=== PATIENT | female | born 1945 | race Caucasian/White ===

== ENCOUNTER → 2018-09-19 | Outpatient (CLI) | payer OTHER, MEDICAID ==
[~2018-09-19] MED LIST: ADULT LOW DOSE81 MG PO; ADVAIRDISKUS; AVELOX 400 MG400 MG PO; AZITHROMYCIN 2250 MG PO; B12 PO; CYCLOBENZAPRINE5 MG PO; CYMBALTA20 MG PO; D3 DOTS2000 UNIT PO; DESYREL100 MG PO; ESTRACE2 MG PO; FENTANYL 1100 MCG/HR; FENTANYL PATCH75 MCG TRANSDERM; FLEXERIL; FLEXERIL PO; FLUZONE 2045 MCG/011; HYDROCODON-ACE1 EAC2 PO; HYDROCODON-ACE1 EAC8 PO; LEVOTHYROXIN0.025 MG PO; LIPITOR10 MG PO; MEDROL2 MG PO; NEURONTIN 300300 M1 PO; NEURONTIN 300M300 M2 PO; POTASSIUM GLUCONATE PO; PREDNISONE 10 M10 MG PO; SPIRIVA; SYMBICORT160 MCG/4. INH; TRAZODONE HCL100 MG PO; TRICOR145 MG PO; VENTOLIN HFA 1818 GM INH; VENTOLIN17 GM; WELLBUTRIN SR150 MG; XANAX 0.25 MG0.25 MG PO
--- NOTE | 2018-09-19 15:06 | 2DMMODE ---
[place] [address] 2 D/M-MODE ECHOCARDIOGRAM Name: KENDY LUCIA Room: [facility]#: [id number] Admission: 09/19/18 Attend Phys: Anup Mirza, Discharge: Date of : 45 Date of Service: 09/19/18 1505 Report #: [id number] THIS REPORT FOR: //name// APPROVED REPORT Study performed: 09/19/2018 14:00:35 EXAM: Comprehensive 2D, Doppler, and color-flow Echocardiogram Patient Location: Out-Patient BSA: 1.81 HR: 108 bpm BP: 120/80 mmHg Other Information Study Quality: Fair Technically limited study due to lung disease. Indications COPD Dyspnea 2D Dimensions IVSd: 12.47 (7-11mm) LVOT Diam: 20.33 (18-24mm) LVDd: 41.05 mm PWd: 10.22 (7-11mm) Ascending Ao: 27.17 (22-36mm) LVDs: 22.63 (25-40mm) Aortic Root: 25.62 mm Volumes Left Atrial Volume (Systole) LA ESV Index: 14.00 mL/m2 Aortic Valve AoV Peak William.: 1.23 m/s AO Peak Gr.: 6.04 mmHg LVOT Max P.11 mmHg AO Mean Gr.: 3.04 mmHg LVOT Mean P.56 mmHg LVOT Max V: 1.24 m/s AO V2 VTI: 18.18 cm LVOT Mean V: 0.72 m/s GONZALO (VTI): 3.51 cm2 LVOT V1 VTI: 19.64 cm Mitral Valve E/A Ratio: 0.65 MV Decel. Time: 159.54 ms MV E Max William.: 0.51 m/s MV PHT: 46.27 [place] [address] 2 D/M-MODE ECHOCARDIOGRAM Name: KHARIKENDY Room: [facility]#: [id number] Admission: 09/19/18 Attend Phys: Anup Mirza, Discharge: Date of : 45 Date of Service: 09/19/18 1505 Report #: [id number] MVA (PHT): 4.76 cm2 TDI E/Lateral E': 4.64 E/Medial E': 5.10 Medial E' William.: 0.10 m/s Lateral E' William.: 0.11 m/s Pulmonary Valve PV Peak William.: 1.01 m/s PV Peak Gr.: 4.12 mmHg Left Ventricle The left ventricle is normal size. There is normal LV segmental wall motion. There is normal left ventricular wall thickness. Left ventricular systolic function is normal. The left ventricular ejection fraction is within the normal range. LVEF is 60-65%. Grade I - abnormal relaxation pattern. Right Ventricle The right ventricle is normal size. The right ventricular systolic function is normal. Atria The left atrium size is normal. The right atrium size is normal. Aortic Valve Aortic valve is mildly calcified. No aortic regurgitation is present. There is no aortic valvular stenosis. Mitral Valve The mitral valve is normal in structure. There is no mitral valve regurgitation noted. No evidence of mitral valve stenosis. Tricuspid Valve The tricuspid valve is normal in structure. There is no tricuspid valve regurgitation noted. Pulmonic Valve The pulmonary valve is normal in structure. Mild pulmonic regurgitation. Great Vessels The aortic root is normal in size. IVC is normal in size and collapses >50% [place] [address] 2 D/M-MODE ECHOCARDIOGRAM Name: KENDY LUCIA Room: [facility]#: [id number] Admission: 09/19/18 Attend Phys: Anup Mirza, Discharge: Date of : 45 Date of Service: 09/19/18 1505 Report #: [id number] inspiration. Pericardium There is no pericardial effusion. <Conclusion> The left ventricle is normal size. There is normal left ventricular wall thickness. Left ventricular systolic function is normal. The left ventricular ejection fraction is within the normal range. LVEF is 60-65%. Grade I - abnormal relaxation pattern. The right ventricle is normal size. The left atrium size is normal. Aortic valve is mildly calcified. No aortic regurgitation is present. There is no aortic valvular stenosis. The mitral valve is normal in structure. The tricuspid valve is normal in structure. IVC is normal in size and collapses >50% with inspiration. There is normal LV segmental wall motion. <ELECTRONICALLY SIGNED> By: Seth Newton MD, [facility] 09/19/18 1505 1505 1505 Seth Newton MD, FAC /INF
== END ==
LOC: M.RAD 09-03 13:30 → M.CRD 09-03 14:00 → M.RAD 09-11 13:30
DX: Z12.31 Encounter for screening mammogram for malignant neoplasm of breast (principal); J44.9 Chronic obstructive pulmonary disease, unspecified; E03.9 Hypothyroidism, unspecified; I10 Essential (primary) hypertension

== ENCOUNTER 2018-12-19 17:09 | Inpatient (IN) | payer OTHER ==
[~2018-12-19] VITALS: Ht 165.1 cm; Wt 75.7 kg
[2018-12-19 17:16] VITALS: BP 162/101
[2018-12-19 17:44] LABS: HEMATOCRIT 38.6 % (37.0-47.0); HEMOGLOBIN 12.9 gm/dL (12.0-15.0); MCH 30.1 pg (26.0-34.0); MCHC 33.5 g/dL (28.0-37.0); MCV 90.1 fL (80.0-100.0); NUCLEATED RBCS 0 /100WBC; PLATELET COUNT* 555 thou/uL (150-400); RBC 4.29 mil/uL (4.20-5.00); RDW-CV 14.1 % (10.5-14.5)
[2018-12-19 18:00] LABS: ALBUMIN 3.7 g/dL (3.4-5.0); ALKALINE PHOSPHATASE 58 U/L (46-116); ANION GAP 12 mmol/L (7-16); BUN 10 mg/dL (7-18); CALCIUM 9.3 mg/dL (8.5-10.1); CHLORIDE 101 mmol/L (98-107); CO2 29 mmol/L (21-32); CREATININE 0.8 mg/dL (0.6-1.3); GLUCOSE 113 mg/dL (70-99); MAGNESIUM 1.7 mg/dL (1.8-2.4); SGOT 22 U/L (15-37); SGPT 18 U/L (30-65); SODIUM 142 mmol/L (136-145); TOTAL BILIRUBIN 0.5 mg/dL (<0.1-1.0); TOTAL PROTEIN 7.9 g/dL (6.4-8.2); TROPONIN-I LEVEL <0.06 ng/mL (<0.06)
[2018-12-19 18:17] LABS: ABSOLUTE LYMPHOCYTES 1.3 thou/uL (0.8-5.3); ABSOLUTE MONOCYTES 1.1 thou/uL (0.0-1.2); ABSOLUTE NEUTROPHILS 16.5 thou/uL (1.6-8.1); PLATELET ESTIMATE ADEQUATE
[2018-12-19 20:00] VITALS: BP 144/68
[2018-12-19 20:10] VITALS: BP 157/82
[2018-12-19 23:39] LABS: URINE BILIRUBIN NEGATIVE (Negative); URINE BLOOD NEGATIVE (Negative); URINE CLARITY CLEAR; URINE COLOR YELLOW; URINE GLUCOSE-RANDOM 3+ (Negative); URINE KETONES TRACE (Negative); URINE LEUKOCYTES-REFLEX NEGATIVE (Negative); URINE NITRITE-REFLEX NEGATIVE (Negative); URINE PROTEIN NEGATIVE (Negative); URINE UROBILINOGEN 0.2 E.U./dl (0.2-1.0)
[2018-12-20] VITALS: BP 150/92
[2018-12-20 04:00] VITALS: BP 131/69
[2018-12-20 05:26] LABS: MCH 29.7 pg (26.0-34.0); MCHC 33.3 g/dL (28.0-37.0); MCV 89.2 fL (80.0-100.0); MPV 7.2 fl. (7.2-11.1); RBC 3.7 mil/uL (4.20-5.00); RDW-CV 13.9 % (10.5-14.5); WBC 13.6 thou/uL (4.0-11.0)
[2018-12-20 06:00] LABS: CREATININE 0.8 mg/dL (0.6-1.3); MAGNESIUM 1.9 mg/dL (1.8-2.4); POTASSIUM 3.6 mmol/L (3.5-5.1)
[2018-12-20 08:19] VITALS: BP 126/74
[2018-12-20 08:54] LABS: INFLUENZA A ANTIGEN None Detected (None Detect); INFLUENZA B ANTIGEN None Detected (None Detect)
--- NOTE | 2018-12-20 09:43 | EKG ---
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1945 Requested By: Ash Sanders Order Number: [id number] MD: Gilberto Carrillo Measurements Intervals [place] Rate: 108 P: 83 WI: 199 QRS: -62 QRSD: 93 T: 52 QT: 343 QTc: 460 Interpretive Statements Sinus tachycardia Biatrial enlargement RSR' in V1 or V2, probably normal variant Inferior infarct, old Consider anterior infarct Compared to ECG 10/03/2014 21:25:24 Atrial abnormality now present RSR' in V1 or V2 now present Sinus rhythm no longer present First degree AV block no longer present Myocardial infarct finding still present Electronically Signed On 12-20-2018 9:43:46 CDT by Gilberto Carrillo [email or web address] <ELECTRONICALLY SIGNED> By: Gilberto Carrillo MD, [facility] 12/20/18 0943 [id number] Gilberto Carrillo MD, [facility] /EPI
[2018-12-20 11:36] VITALS: BP 105/76
[2018-12-20 15:22] VITALS: BP 120/65
[2018-12-20 20:00] VITALS: BP 137/72
[2018-12-20 22:06] LABS: GLYCOHEMOGLOBIN (HGB A1C) 5.7 % (4.8-5.6)
[2018-12-21] VITALS: BP 135/70
[2018-12-21 04:00] VITALS: BP 135/62
[2018-12-21 04:22] LABS: ABSOLUTE BASOPHILS 0.1 thou/uL (0.0-0.2); ABSOLUTE LYMPHOCYTES 0.8 thou/uL (0.8-5.3); ABSOLUTE MONOCYTES 0.5 thou/uL (0.0-1.2); ABSOLUTE NEUTROPHILS 19.9 thou/uL (1.6-8.1); BASOPHILS 0.5 %; EOSINOPHILS 0.2 %; HEMATOCRIT 32.7 % (37.0-47.0); HEMOGLOBIN 10.7 gm/dL (12.0-15.0); LYMPHOCYTES 3.8 %; MCH 29.5 pg (26.0-34.0); MCHC 32.8 g/dL (28.0-37.0); MCV 90.1 fL (80.0-100.0); MONOCYTES 2.2 %; MPV 7.3 fl. (7.2-11.1); NUCLEATED RBCS 0 /100WBC; PLATELET COUNT* 513 thou/uL (150-400); POLYS 93.3 %; RBC 3.63 mil/uL (4.20-5.00); RDW-CV 14.1 % (10.5-14.5); WBC 21.3 thou/uL (4.0-11.0)
[2018-12-21 08:00] VITALS: BP 131/77
[2018-12-21 11:40] VITALS: BP 133/74
[2018-12-21 20:00] VITALS: BP 156/69
[2018-12-22] VITALS: BP 147/84
[2018-12-22 05:13] LABS: HEMATOCRIT 33.5 % (37.0-47.0); MCH 29.5 pg (26.0-34.0); MCV 89.3 fL (80.0-100.0); MPV 7.2 fl. (7.2-11.1); RBC 3.75 mil/uL (4.20-5.00); RDW-CV 14.1 % (10.5-14.5); WBC 16.2 thou/uL (4.0-11.0)
[2018-12-22 06:10] LABS: CALCIUM 10.1 mg/dL (8.5-10.1); CREATININE 0.9 mg/dL (0.6-1.3); POTASSIUM 3.5 mmol/L (3.5-5.1)
[2018-12-22 08:00] VITALS: BP 144/87
[2018-12-22 12:00] VITALS: BP 172/94
[2018-12-22 20:00] VITALS: BP 169/87
[2018-12-23 05:40] VITALS: BP 157/86
[2018-12-23 08:00] VITALS: BP 136/76
[2018-12-23 10:46] VITALS: BP 157/86
[2018-12-23] MEDS ORDERED: LEVAQUIN 750 M750 MG PO (11:02)
[2018-12-23] MEDS ORDERED: PREDNISONE 10 M10 MG PO (11:04)
[2018-12-23] MEDS ORDERED: ALBUTEROL2.5 MG/31 INH (11:05)
[2018-12-23 11:50] VITALS: BP 157/86
== END 2018-12-23 11:20 | disposition home or self-care (01) | DRG 177 ==
LOC: M.ERS 17:09 → M.TBA-ER 18:24 → M.2W 18:24 → M.3W 12-23 05:26
PROVIDERS: Emergency Medicine Emergency Medical Services; Personal Emergency Response Attendant; ADMIT Internal Medicine
DX: J15.6 Pneumonia due to other Gram-negative bacteria (principal); J96.21 Acute and chronic respiratory failure with hypoxia; J44.1 Chronic obstructive pulmonary disease with (acute) exacerbation; J44.0 Chronic obstructive pulmonary disease with (acute) lower respiratory infection; Z88.8 Allergy status to other drugs, medicaments and biological substances; Z87.891 Personal history of nicotine dependence; Z79.899 Other long term (current) drug therapy

== ENCOUNTER 2019-01-29 15:50 | Emergency (ER) | payer OTHER ==
[~2019-01-29] VITALS: Ht 162.6 cm; Wt 72.6 kg
[~2019-01-29 15:50] MED LIST changes: +ALBUTEROL2.5 MG/31 INH; +LEVAQUIN 750 M750 MG PO
[2019-01-29 17:17] VITALS: BP 116/89
== END 2019-01-29 17:19 | disposition home or self-care (01) ==
LOC: M.ERS 15:50
DX: S01.112A Laceration without foreign body of left eyelid and periocular area, initial encounter (principal); S80.01XA Contusion of right knee, initial encounter; J44.9 Chronic obstructive pulmonary disease, unspecified; Z98.890 Other specified postprocedural states; Z88.1 Allergy status to other antibiotic agents; Z88.8 Allergy status to other drugs, medicaments and biological substances; W01.0XXA Fall on same level from slipping, tripping and stumbling without subsequent striking against object, initial encounter; Y93.89 Activity, other specified; Y92.89 Other specified places as the place of occurrence of the external cause; Y99.8 Other external cause status

== ENCOUNTER → 2019-02-06 | Outpatient (CLI) | payer OTHER, MEDICAID | LOC: M.MRI 01-30 13:30 | DX: M17.12 Unilateral primary osteoarthritis, left knee (principal); M71.22 Synovial cyst of popliteal space [Baker], left knee; M48.02 Spinal stenosis, cervical region; J44.9 Chronic obstructive pulmonary disease, unspecified; I10 Essential (primary) hypertension; E78.2 Mixed hyperlipidemia; F32.9 Major depressive disorder, single episode, unspecified ==

== ENCOUNTER 2019-06-11 15:03 | Inpatient (IN) | payer OTHER, MEDICAID ==
[~2019-06-11] VITALS: Ht 162.6 cm; Wt 80.3 kg
[2019-06-11 15:06] VITALS: BP 147/91
[2019-06-11 15:37] LABS: ABSOLUTE BASOPHILS 0.2 thou/uL (0.0-0.2); ABSOLUTE EOSINOPHILS 0.1 thou/uL (0.0-0.7); ABSOLUTE LYMPHOCYTES 3.7 thou/uL (0.8-5.3); ABSOLUTE MONOCYTES 1.1 thou/uL (0.0-1.2); ABSOLUTE NEUTROPHILS 7.2 thou/uL (1.6-8.1); BASOPHILS 1.3 %; EOSINOPHILS 0.7 %; HEMATOCRIT 37.9 % (37.0-47.0); HEMOGLOBIN 12.5 gm/dL (12.0-15.0); LYMPHOCYTES 30.1 %; MCH 29.8 pg (26.0-34.0); MCV 90.3 fL (80.0-100.0); MONOCYTES 9.1 %; MPV 7.2 fl. (7.2-11.1); NUCLEATED RBCS 0 /100WBC; PLATELET COUNT* 486 thou/uL (150-400); POLYS 58.8 %; RBC 4.19 mil/uL (4.20-5.00); RDW-CV 14.3 % (10.5-14.5); WBC 12.2 thou/uL (4.0-11.0)
[2019-06-11 15:46] LABS: CALCIUM 9.9 mg/dL (8.5-10.1); CREATININE 0.8 mg/dL (0.6-1.3); POTASSIUM 3.4 mmol/L (3.5-5.1)
[2019-06-11 15:51] LABS: APTT 25.7 Seconds (25.0-31.3); PROTIME 9.9 Seconds (9.20-11.50)
[2019-06-11 16:00] LABS: ALBUMIN 3.9 g/dL (3.4-5.0); CK-MB MASS 2.4 ng/mL (<0.5-3.6); MAGNESIUM 1.7 mg/dL (1.8-2.4); TOTAL BILIRUBIN 0.3 mg/dL (<0.1-1.0); TOTAL PROTEIN 7.3 g/dL (6.4-8.2)
[2019-06-11 16:25] VITALS: BP 147/86
[2019-06-11 18:07] VITALS: BP 138/91
[2019-06-12] VITALS (12 sets, daily range): BP systolic 107–155; BP diastolic 64–88
[2019-06-12 05:23] LABS: ABSOLUTE BASOPHILS 0.2 thou/uL (0.0-0.2); ABSOLUTE EOSINOPHILS 0.1 thou/uL (0.0-0.7); ABSOLUTE LYMPHOCYTES 3.4 thou/uL (0.8-5.3); ABSOLUTE MONOCYTES 0.9 thou/uL (0.0-1.2); ABSOLUTE NEUTROPHILS 6.8 thou/uL (1.6-8.1); BASOPHILS 1.6 %; EOSINOPHILS 0.7 %; HEMATOCRIT 34.8 % (37.0-47.0); HEMOGLOBIN 11.5 gm/dL (12.0-15.0); LYMPHOCYTES 29.7 %; MCH 29.8 pg (26.0-34.0); MCV 90.3 fL (80.0-100.0); MONOCYTES 7.9 %; MPV 6.6 fl. (7.2-11.1); NUCLEATED RBCS 0 /100WBC; PLATELET COUNT* 438 thou/uL (150-400); POLYS 60.1 %; RBC 3.85 mil/uL (4.20-5.00); RDW-CV 14.3 % (10.5-14.5); WBC 11.3 thou/uL (4.0-11.0)
[2019-06-12 05:28] LABS: CALCIUM 9.6 mg/dL (8.5-10.1); CREATININE 0.7 mg/dL (0.6-1.3); POTASSIUM 3.8 mmol/L (3.5-5.1)
--- NOTE | 2019-06-12 11:23 | EKG ---
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[place] : 1945 Requested By: John Roman Order Number: [id number] MD: Anup Duran Measurements Intervals [place] Rate: 94 P: 80 MN: 223 QRS: -40 QRSD: 93 T: 68 QT: 351 QTc: 439 Interpretive Statements Sinus rhythm Prolonged MN interval Probable left atrial enlargement RSR' in V1 or V2, probably normal variant Inferior infarct, old Compared to ECG 12/19/2018 17:21:50 First degree AV block now present Sinus tachycardia no longer present Myocardial infarct finding still present Electronically Signed On 06-12-2019 11:23:26 CDT by Anup Duran [email or web address] <ELECTRONICALLY SIGNED> By: Anup Duran MD, FACC 06/12/19 1123 1510 1510 Anup Duran MD, FACC /EPI
--- NOTE | 2019-06-12 13:35 | CARD ---
[address] [address] CARDIAC CATH REPORT Name: KHARIKENDY Room: [address] IN ..#: [id number] Admission: 06/11/19 Attend Phys: Mendel Ricardo MD Discharge: Date of : 45 Report #: [id number] THIS REPORT FOR: //name// APPROVED REPORT Study performed: 06/12/2019 09:43:33 Patient Details Patient Status: In-Patient Room #: The patient is a 74 year-old female Event Personnel Anup Duran Principal Automation Engineer, Martha Cisneros RN Coffin Maker, Mariah Mendez RN Monitor, Nina Vergara RTR Scrub, Cristiano Garcia CROWNING HAMMER OPERATOR Scrub Procedures Performed Art Access - R radial artery Left Heart Cath w/or w/o Coronaries [id number] [facility] [facility] , Selective Right and Left Coronary Angiography Indication Abnormal ECG, Chest pain Risk Factors Chronic Lung DiseaseHypercholesterolemia, Tobacco History () Admission/Lab Medications/Medications given during procedure Lipid Lowering Agents, Heparin Unfract. Procedure Narrative The patient was brought electively to the Cardiac Catheterization Laboratory and was prepped and draped in a sterile manner. The right wrist was infiltrated with 1% Lidocaine subcutaneous anesthesia. A Slender Glidesheath sheath was inserted into the right radial artery. Coronary angiography was performed using coronary diagnostic catheters. The right coronary system was accessed and visualized with a JR4 catheter. The left coronary system was accessed and visualized with a JL4 catheter. The left ventricle was accessed and visualized with a PIG catheter. Left ventricular/Aortic Valve gradient assessed via catheter pullback. Left ventriculogram was performed in LINO projection. Closure device was deployed with a 6 Fr TR Band. The patient tolerated the procedure well and there were no complications associated with the procedure. [place] [address] CARDIAC CATH REPORT Name: KENDY LUCIA Room: [address] IN .R.#: [id number] Admission: 06/11/19 Attend Phys: Mendel Ricardo MD Discharge: Date of : 45 Report #: [id number] Intraoperative Conscious Sedation Fentanyl 25 mcg Dose: 752 mGy Contrast Type and Amount: Omnipaque 130 ml Coronary Angiography The patient's coronary anatomy is co- dominant. [place] Artery Percent Stenosis Left Main: 0 % Prox LAD: 0 % Mid/Distal LAD: 0 % Circumflex: 0 % RCA: 30 % Ramus: % Left Ventriculography The left ventricle is normal in size with normal contractility. The left ventricular ejection fraction is estimated to be 60-65%. Left ventricular wall motion abnormalities are not present. There is 1+ mitral insufficiency. Hemodynamics The left ventricular end diastolic pressure is 20 mmHg. There was no gradient across the aortic valve upon pullback. Pullback from the left ventricle to the aorta revealed no gradient across the aortic valve. Conclusion 1. no significant cad 2. suspect noncardiac chest pain 3. LVEF 60-65% Recommendations Aggressive Medical Therapy <ELECTRONICALLY SIGNED> By: Anup Duran MD, [facility] 06/12/19 1335 1335 1335Davibenita Duran MD, FACC /INF
--- NOTE | 2019-06-18 18:26 | CON ---
[address] [address] CONSULTATION Name: KHARIKENDY ROSEMARY Room: [address] IN M.R.#: [id number] Admission: 06/11/19 Attend Phys: Mendel Ricardo MD Discharge: 06/12/19 Date of : 45 Report #: [id number] THIS REPORT FOR: //name// CC: Mendel Mirza DATE OF SERVICE: 06/12/2019 CARDIOLOGY CONSULTATION HISTORY OF PRESENT ILLNESS: The patient is a 74-year-old single white female, who I was asked to see in the hospital after she complained of chest pain. The patient has no previous history of heart disease. She actually had a nuclear stress test here at [facility] back in 2011 using Lexiscan. The results showed ejection fraction of 77% with no evidence of ischemia or previous infarction. Because of shortness of breath, she actually had an echocardiogram in August of this year here at [facility] that showed ejection fraction of 60% with aortic sclerosis. She is not very active because of COPD, uses inhaler and has oxygen at home to use. She was doing well until yesterday. She was at home and felt a squeeze in her chest. There is no radiation of the pain. It lasted about 20 minutes, resolved. It was not related to food. She did have some belch with the episode. She has had no recent bleeding or cough. She denied any trauma to her chest. There was no associated diaphoresis, nausea. She went to see her doctor yesterday and was sent her over to the hospital to be admitted. She denied any palpitations or syncope. PAST MEDICAL HISTORY: She has had cholecystectomy, hysterectomy, ankle fracture. She has chronic back pain and has had an epidural in the past. She has been diagnosed with spinal stenosis. She has dyslipidemia. MEDICATIONS: Include Lipitor, fenofibrate, Prevacid for indigestion, hydrocodone for chronic back pain. She takes steroids occasionally. She has intolerance to Demerol. FAMILY HISTORY: Her grandmother of heart attack when she was 64. SOCIAL HISTORY: She is single, lives in [place], not working at this time, used to smoke 2 packs of cigarettes a day, quit in 2011. Rarely drinks alcohol. REVIEW OF SYSTEMS: She has had no history of stroke. She has had a hiatal hernia. No history of liver disease, kidney disease, cancer, psychiatric illness, chronic skin condition. She is overweight, being 5 feet 4. She weighs 225 pounds. PHYSICAL EXAMINATION: [place] [address] CONSULTATION Name: KENDY LUCIA Room: [address] IN M.R.#: [id number] Admission: 06/11/19 Attend Phys: Mendel Ricardo MD Discharge: 06/12/19 Date of : 45 Report #: [id number] GENERAL: Revealed an elderly female lying in bed. She appeared in no distress. VITAL SIGNS: She had a blood pressure of 140/80, pulse is 80, she is afebrile. HEENT: She is anicteric. Conjunctivae pink. Mucous membranes moist. NECK: Veins nondistended. No carotid bruits. CHEST: Revealed expiratory wheezes. CARDIAC: Regular rate and rhythm, no murmur. ABDOMEN: Soft. EXTREMITIES: Had no edema, no Homans' sign. Dorsalis pedis pulse 1+. SKIN: Warm and dry. NEUROLOGIC: Nonfocal. LYMPH: No adenopathy. MUSCULOSKELETAL: No joint effusion. Her ECG done yesterday in her doctor's office showed a sinus rhythm, occasional PAC, left axis deviation, incomplete right bundle-branch block, possible previous inferior infarction, age indeterminate. LAB WORK: Sodium 140, potassium 3.8, creatinine 0.7, glucose 98. Liver function studies were normal. Troponins all 0.06. Her white blood cell count 11.3, hemoglobin 11.5. IMPRESSION AND RECOMMENDATIONS: 1. Chest pressure, suspicious for angina. 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 I would recommend cardiac catheterization. 2. Chronic obstructive pulmonary disease. 3. Chronic back pain. 4. Dyslipidemia. The patient is on Lipitor and fenofibrate. 5. Previous tobacco abuse. 6. Hiatal hernia. <ELECTRONICALLY SIGNED> By: Anup Duran MD, FACC 06/18/19 1826 0923 0941Dashane Duran MD, FACC /nt
== END 2019-06-12 19:19 | disposition home or self-care (01) | DRG 286 ==
LOC: M.ERS 15:03 → M.2W 17:13 → M.TBA-ER 17:13 → M.2W 18:23
PROVIDERS: Emergency Medicine; ADMIT Internal Medicine
PROC: 4A023N7 Measurement of Cardiac Sampling and Pressure, Left Heart, Percutaneous Approach (ICD-10-PCS; principal; 2019-06-12)
PROC: B2151ZZ Fluoroscopy of Left Heart using Low Osmolar Contrast (ICD-10-PCS; principal; 2019-06-12)
PROC: B2111ZZ Fluoroscopy of Multiple Coronary Arteries using Low Osmolar Contrast (ICD-10-PCS; principal; 2019-06-12)
DX: R07.89 Other chest pain (principal); I50.33 Acute on chronic diastolic (congestive) heart failure; J96.10 Chronic respiratory failure, unspecified whether with hypoxia or hypercapnia; I20.9 Angina pectoris, unspecified; J44.9 Chronic obstructive pulmonary disease, unspecified; E78.00 Pure hypercholesterolemia, unspecified; M19.90 Unspecified osteoarthritis, unspecified site; E78.5 Hyperlipidemia, unspecified; K44.9 Diaphragmatic hernia without obstruction or gangrene; G89.29 Other chronic pain; M54.9 Dorsalgia, unspecified; Z79.82 Long term (current) use of aspirin; Z79.899 Other long term (current) drug therapy; Z90.710 Acquired absence of both cervix and uterus; Z90.49 Acquired absence of other specified parts of digestive tract; Z88.1 Allergy status to other antibiotic agents; Z88.8 Allergy status to other drugs, medicaments and biological substances; Z82.49 Family history of ischemic heart disease and other diseases of the circulatory system; Z87.891 Personal history of nicotine dependence

== ENCOUNTER → 2019-07-29 | Outpatient (CLI) | payer OTHER, MEDICAID ==
--- NOTE | 2019-08-02 11:39 | PF ---
[address] [address] PULMONARY FUNCTION REPORT Name: KENDY LUCIA Room: [facility].#: [id number] Admission: 07/29/19 Attend Phys: Anup Mirza MD Discharge: Date of : 45 Report #: [id number] THIS REPORT FOR: //name// CC: Anup Mirza DATE OF SERVICE: 07/29/2019 PULMONARY FUNCTION TESTING DATA: Forced vital capacity is 2.19, 76% predicted. FEV1 is 0.79, 37% predicted. FEV1/FVC ratio is 36. Postbronchodilator value of FEV1 is 0.82, yielding 4% improvement. Post-bronchodilator value of forced vital capacity is 2.24, yielding 2% improvement. Total lung capacity 4.83, 79% predicted. Diffusion capacity is 7.0, 34% predicted. IMPRESSION: Severe airflow limitation with no significant bronchodilator effect. Normal lung volumes. Diminished diffusion capacity. <ELECTRONICALLY SIGNED> By: Reuben Pierce MD 08/02/19 1139 1146 1232Himila Pierce MD /nt
== END ==
LOC: M.PUL 07-16 12:59 → M.CT 13:18
DX: J43.1 Panlobular emphysema (principal); I25.10 Atherosclerotic heart disease of native coronary artery without angina pectoris; J84.10 Pulmonary fibrosis, unspecified; K21.0 Gastro-esophageal reflux disease with esophagitis; E03.9 Hypothyroidism, unspecified; E55.9 Vitamin D deficiency, unspecified; E78.2 Mixed hyperlipidemia; M25.78 Osteophyte, vertebrae; I70.0 Atherosclerosis of aorta

== ENCOUNTER 2019-08-27 16:06 | Inpatient (IN) | payer OTHER, MEDICAID ==
[~2019-08-27] VITALS: Ht 162.6 cm; Wt 87.5 kg
[~2019-08-27 16:06] MED LIST changes: -LEVOTHYROXIN0.025 MG PO; +SYNTHROID75 MCG PO
[2019-08-27 16:14] VITALS: BP 130/74
[2019-08-27 17:01] LABS: HEMOGLOBIN 12.1 gm/dL (12.0-15.0); MPV 7.6 fl. (7.2-11.1); NUCLEATED RBCS 0 /100WBC
[2019-08-27 17:04] LABS: HEMATOCRIT 36.3 % (37.0-47.0); MCH 30.5 pg (26.0-34.0); MCHC 33.4 g/dL (28.0-37.0); MCV 91.3 fL (80.0-100.0); RBC 3.98 mil/uL (4.20-5.00); RDW-CV 13.9 % (10.5-14.5); WBC 19.1 thou/uL (4.0-11.0)
[2019-08-27 17:11] LABS: CALCIUM 9.1 mg/dL (8.5-10.1); CREATININE 0.8 mg/dL (0.6-1.3); POTASSIUM 3.4 mmol/L (3.5-5.1)
[2019-08-27 17:16] LABS: ALBUMIN 3.4 g/dL (3.4-5.0); TOTAL BILIRUBIN 0.5 mg/dL (<0.1-1.0); TOTAL PROTEIN 7.6 g/dL (6.4-8.2)
[2019-08-27 18:03] LABS: PLATELET COUNT* 335 thou/uL (150-400)
[2019-08-27 18:04] LABS: ABSOLUTE LYMPHOCYTES 2.3 thou/uL (0.8-5.3); ABSOLUTE MONOCYTES 1.7 thou/uL (0.0-1.2); ABSOLUTE NEUTROPHILS 15.1 thou/uL (1.6-8.1); PLATELET ESTIMATE ADEQUATE
[2019-08-27 18:14] LABS: INFLUENZA A ANTIGEN Negative (Negative); INFLUENZA B ANTIGEN Negative (Negative)
[2019-08-28 01:07] VITALS: BP 125/72
[2019-08-28 05:17] VITALS: BP 117/78
[2019-08-28 08:16] VITALS: BP 112/76
[2019-08-28 14:12] VITALS: BP 103/72
[2019-08-28 14:36] LABS: ABSOLUTE EOSINOPHILS 0.1 thou/uL (0.0-0.7); ABSOLUTE MONOCYTES 1.4 thou/uL (0.0-1.2); ABSOLUTE NEUTROPHILS 8.9 thou/uL (1.6-8.1); BASOPHILS 0.4 %; EOSINOPHILS 0.6 %; HEMATOCRIT 28.9 % (37.0-47.0); LYMPHOCYTES 8.7 %; MCHC 33.1 g/dL (28.0-37.0); MCV 90.7 fL (80.0-100.0); MONOCYTES 12.2 %; MPV 7.1 fl. (7.2-11.1); NUCLEATED RBCS 0 /100WBC; PLATELET COUNT* 335 thou/uL (150-400); POLYS 78.1 %; RBC 3.18 mil/uL (4.20-5.00); RDW-CV 14.5 % (10.5-14.5); WBC 11.3 thou/uL (4.0-11.0)
[2019-08-28 14:38] LABS: HEMOGLOBIN 9.6 gm/dL (12.0-15.0)
[2019-08-28 14:43] LABS: CALCIUM 8.4 mg/dL (8.5-10.1); CREATININE 0.7 mg/dL (0.6-1.3); POTASSIUM 3.4 mmol/L (3.5-5.1)
--- NOTE | 2019-08-28 15:10 | NUR ---
REPORT CALLED TO 2CND FLOOR, WILL TRANSPORT TO ROOM 200.
--- NOTE | 2019-08-28 16:19 | NUR ---
PT TO ROOM FROM ETR, APPEARS ALERT O X 4, DENIES CHEST PAIN, SOB, PAIN OR DISCOMORT. PIX 2, APPEARS PATENT. ON O2 AT 2L PER NC. CT CALLED PT TO HAVE CT CHEST R/O PE, REQUESTED ADDITIONAL IV AC FOR CONTRAST, IV STARTED L AC, WILL TRANSPORT TO CT AT THIS TIME
[2019-08-28 19:40] VITALS: BP 137/88
[2019-08-29] VITALS: BP 147/66
[2019-08-29 04:00] VITALS: BP 160/83
--- NOTE | 2019-08-29 04:35 | NUR ---
PATIENT PROGRESSING TOWARDS GOALS: O2 SATURATION MAINTAINED ON 3L O2 NC. PATIENT HAS PRODUCTIVE COUGH, SPUTUM SAMPLE COLLECTED AND SENT TO LAB. MRSA COLLECTED AND SENT TO LAB WELL. PATIENT'S PAIN MANAGED WITH MEDICATION PER MAR AND RELAXATION. PATIENT'S ANXIETY MANAGED WELL WITH REASSURANCE, RELAXATION TECHNIQUES, DISTRACTION, AND MEDICATION. CALL LIGHT WITHIN REACH
[2019-08-29 05:03] LABS: HEMATOCRIT 29.9 % (37.0-47.0); HEMOGLOBIN 9.8 gm/dL (12.0-15.0); MCH 29.8 pg (26.0-34.0); MCHC 32.6 g/dL (28.0-37.0); MCV 91.5 fL (80.0-100.0); MPV 7.4 fl. (7.2-11.1); RBC 3.27 mil/uL (4.20-5.00); RDW-CV 14.3 % (10.5-14.5); WBC 10.6 thou/uL (4.0-11.0)
[2019-08-29 05:05] LABS: CALCIUM 8.3 mg/dL (8.5-10.1); CREATININE 0.9 mg/dL (0.6-1.3); POTASSIUM 3.1 mmol/L (3.5-5.1)
[2019-08-29 08:00] VITALS: BP 153/68
--- NOTE | 2019-08-29 12:23 | EKG ---
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1945 Requested By: Ivan Schneider Order Number: [id number] MD: Seth Newton Measurements Intervals [place] Rate: 96 P: 84 IN: 199 QRS: -40 QRSD: 185 T: 59 QT: 347 QTc: 439 Interpretive Statements Sinus rhythm Nonspecific IVCD with LAD Probable inferior infarct Baseline wander in lead(s) V3 Compared to ECG 06/11/2019 15:10:47 Intraventricular conduction delay now present First degree AV block no longer present Myocardial infarct finding still present Electronically Signed On 08-29-2019 12:23:14 MANAGER SUSTAINABILITY by Seth Newton [email or web address] <ELECTRONICALLY SIGNED> By: Seth Newton MD, FAC 08/29/19 1223 1651 1651 Seth Newton MD, FAC /EPI
--- NOTE | 2019-08-29 12:25 | EKG ---
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1945 Requested By: Ivan Schneider Order Number: [id number] Pamela MD: Seth Newton Measurements Intervals [place] Rate: 103 P: 101 NM: 195 QRS: -23 QRSD: 93 T: 70 QT: 353 QTc: 462 Interpretive Statements Atrial-paced complexes RSR' in V1 or V2, probably normal variant Inferior infarct, old Compared to ECG 06/11/2019 15:10:47 Sinus rhythm no longer present Myocardial infarct finding still present Electronically Signed On 08-29-2019 12:24:34 BINDING PRINTER by Seth Newton [email or web address] <ELECTRONICALLY SIGNED> By: Seth Newton MD, [facility] 08/29/19 1224 1653 1653 Seth Newton MD, [facility] /EPI
--- NOTE | 2019-08-29 16:02 | NUR ---
SW met with pt to complete initial assessment, introduce self, and SW role. Pt lives at home alone; pt moved to a duplex in [place] to be closer to family. Pt continues to have home oxygen through [employer]. Pt is uncertain of any dc needs at this time. SW to continue to follow to assist with safe dc planning.
[2019-08-29 17:04] VITALS: BP 181/90
--- NOTE | 2019-08-29 18:46 | NUR ---
ASSUMED PT CARE AT 0700, PT A&O X4, VSS, REMAINS ON 2 LPM VIA UT, MED SURG STATUS, FULL ASSESSMENT CHARTED. PT CONT ON IV ABTS AND STEROIDS, TOLERATING WELL. HOURLY ROUNDING COMPLETED.
[2019-08-29 19:25] VITALS: BP 170/84
[2019-08-30 04:00] VITALS: BP 170/82
--- NOTE | 2019-08-30 04:42 | NUR ---
PATIENT REMAINS SHORT OF BREATH ON EXERTION AND EXPERIENCING ANXIETY, PARTIALLY RELIEVED WITH RELAXATION TECHNIQUES AND MEDICATION PER MAR. PATIENT HAVING NON-PRODUCTIVE COUGH. PATIENT UP WITH STANDBY ASSIST TO BEDSIDE COMMODE DUE TO SOA. CALL LIGHT WITHIN REACH
[2019-08-30 05:46] LABS: HEMOGLOBIN 10.3 gm/dL (12.0-15.0); MCH 29.8 pg (26.0-34.0); MCHC 33.2 g/dL (28.0-37.0); MCV 89.8 fL (80.0-100.0); MPV 7.3 fl. (7.2-11.1); RBC 3.45 mil/uL (4.20-5.00)
[2019-08-30 05:55] LABS: CALCIUM 9.6 mg/dL (8.5-10.1); CREATININE 0.8 mg/dL (0.6-1.3); MAGNESIUM 1.5 mg/dL (1.8-2.4); POTASSIUM 3.2 mmol/L (3.5-5.1)
[2019-08-30] MEDS ORDERED: ALPRAZOLAM 0.50.5 M1 PO (07:48)
[2019-08-30] MEDS ORDERED: DULOXETINE HCL30 MG PO (07:49)
[2019-08-30] MEDS ORDERED: PREVACID30 MG PO (07:51)
[2019-08-30 08:00] VITALS: BP 157/82
[2019-08-30 15:58] VITALS: BP 155/89
[2019-08-30 20:00] VITALS: BP 176/98
--- NOTE | 2019-08-30 22:58 | NUR ---
PT ALERT ORIENTED. UP WITH STAND BY ASSIST. PT MEDSURG STATUS. XANAX GIVEN PER PT REQUEST. PT TALKING RAPIDLY. PT REQUESTING 2 XANAX. BENADRYL AND MELATONIN GIVEN. HYDROCODONE GIVEN FOR CHRONIC BACK NECK PAIN AND RIB PAIN. BP ELEVATED. 176/98-191/112. DR MARROQUIN NOTIFIED. LABATOLOL ORDERED AND GIVEN. PT RESTING IN ROOM.
[2019-08-31] VITALS: BP 183/93
[2019-08-31 04:00] VITALS: BP 170/88
[2019-08-31 08:00] VITALS: BP 150/87
[2019-08-31] MEDS ORDERED: PREDNISONE 10 M10 MG PO (11:08)
[2019-08-31] MEDS ORDERED: MUCINEX600 MG PO (11:08)
[2019-08-31] MEDS ORDERED: LEVAQUIN 750 M750 MG PO (11:08)
[2019-08-31 15:02] VITALS: BP 150/87
--- NOTE | 2019-08-31 15:38 | NUR ---
RECEIVED REPORT. ASSUMED CARE OF PT AROUND 0730. PT A&O X4. VSS. O2 SAT >90% ON 3L PER NC. PT STATES THAT SHE USES 2 TO 3L PER NC AT HOME. PT M/S STAUTS. AM ASSESSMENT AND VITALS COMPLETED CHARTED. IV'S INTACT. MEDS PER EMAR. PT REPORTED RIB PAIN AT 4/10, BUT STATED THIS IS A TOLERABLE LEVEL AND DENIED NEED FOR MEDICATION FOR PAIN THIS AM. PT TOLERATING DIET. FEELS READY TO GO HOME. DISCHARGE ORDERS RECEIVED. DISCHARGE COMPLETED DOCUMENTED. DISCHARGE SUMMARY AND CARE NOTES GONE OVER WITH PT, PT COMMUNCIATES UNDERSTANDIG. SCRIPTS SENT TO PHARMACY. PT AWARE. PT AWARE OF FOLLOW UP APPOINTMENTS. IV'S REMOVED. ALL BELONGINGS GATHERED AND READY TO LEAVE WITH PT. PT CURRENTLY SITTING IN BED AWAITING HER RIDE. FALL PRECAUTIONS IN PLACE. CALL LIGHT IS WITHIN REACH. WILL CONTINUE TO MONITOR PT UNTIL SHE LEAVES THE UNIT.
== END 2019-08-31 16:00 | disposition home or self-care (01) | DRG 871 ==
LOC: M.ERS 16:06 → M.2W 19:09 → M.TBA-ER 19:09 → M.2W 08-28 15:31
PROVIDERS: Internal Medicine; Physician Assistant; ADMIT Family Medicine
DX: A41.89 Other specified sepsis (principal); J15.9 Unspecified bacterial pneumonia; S22.42XA Multiple fractures of ribs, left side, initial encounter for closed fracture; J44.0 Chronic obstructive pulmonary disease with (acute) lower respiratory infection; J44.1 Chronic obstructive pulmonary disease with (acute) exacerbation; M54.9 Dorsalgia, unspecified; G89.29 Other chronic pain; R79.1 Abnormal coagulation profile; F41.1 Generalized anxiety disorder; Z90.49 Acquired absence of other specified parts of digestive tract; Z99.81 Dependence on supplemental oxygen; Z87.891 Personal history of nicotine dependence; Z90.710 Acquired absence of both cervix and uterus; Z79.899 Other long term (current) drug therapy; Z88.6 Allergy status to analgesic agent; Z88.8 Allergy status to other drugs, medicaments and biological substances; Y95 Nosocomial condition; W18.39XA Other fall on same level, initial encounter; Y93.89 Activity, other specified; Y92.89 Other specified places as the place of occurrence of the external cause; Y99.8 Other external cause status

== ENCOUNTER → 2020-05-22 | Outpatient (CLI) | payer MEDICARE ==
[~2020-05-22] MED LIST changes: +ALPRAZOLAM 0.50.5 M1 PO; +DULOXETINE HCL30 MG PO; +MUCINEX600 MG PO; +PREVACID30 MG PO
[2020-05-22 15:40] LABS: ABSOLUTE BASOPHILS 0.2 thou/uL (0.0-0.2); ABSOLUTE EOSINOPHILS 0.1 thou/uL (0.0-0.7); ABSOLUTE LYMPHOCYTES 3.9 thou/uL (0.8-5.3); ABSOLUTE MONOCYTES 1.3 thou/uL (0.0-1.2); ABSOLUTE NEUTROPHILS 10.3 thou/uL (1.6-8.1); BASOPHILS 1.5 %; EOSINOPHILS 0.5 %; HEMATOCRIT 40.2 % (37.0-47.0); HEMOGLOBIN 13.2 gm/dL (12.0-15.0); LYMPHOCYTES 24.4 %; MCH 29.8 pg (26.0-34.0); MCHC 32.9 g/dL (28.0-37.0); MCV 90.3 fL (80.0-100.0); MONOCYTES 8.4 %; MPV 6.8 fl. (7.2-11.1); NUCLEATED RBCS 0 /100WBC; PLATELET COUNT* 459 thou/uL (150-400); POLYS 65.2 %; RBC 4.45 mil/uL (4.20-5.00); RDW-CV 14.4 % (10.5-14.5); WBC 15.9 thou/uL (4.0-11.0)
[2020-05-22 15:48] LABS: ANION GAP 6 mmol/L (7-16); BUN 16 mg/dL (7-18); CALCIUM 9.7 mg/dL (8.5-10.1); CHLORIDE 100 mmol/L (98-107); CO2 35 mmol/L (21-32); GLUCOSE 76 mg/dL (70-99); POTASSIUM 3.2 mmol/L (3.5-5.1); SODIUM 141 mmol/L (136-145)
[2020-05-22 15:58] LABS: ALKALINE PHOSPHATASE 53 U/L (46-116); CHOLESTEROL 192 mg/dL (<200); HDL CHOLESTEROL 85 mg/dL (>40); LDL CHOLESTEROL 86 mg/dL (<100); SERUM ASSESSMENT Clear; SGOT 19 U/L (15-37); SGPT 26 U/L (30-65); TC:HDL 2.3 Ratio (Not establshd); TOTAL BILIRUBIN 0.5 mg/dL (<0.1-1.0); TOTAL PROTEIN 7.3 g/dL (6.4-8.2); TRIGLYCERIDE 107 mg/dL (<150); VLDL 21 mg/dL (<40)
== END ==
LOC: M.RAD 14:59
PROVIDERS: ATTEND Internal Medicine
DX: J44.9 Chronic obstructive pulmonary disease, unspecified (principal); M54.5 Low back pain; G89.29 Other chronic pain; M17.12 Unilateral primary osteoarthritis, left knee; I10 Essential (primary) hypertension; F41.9 Anxiety disorder, unspecified; J84.10 Pulmonary fibrosis, unspecified

== ENCOUNTER → 2020-08-03 | Outpatient (CLI) | payer MEDICARE ==
[2020-08-03 15:54] LABS: BE 2.2 mmol/L (-2 to +3); PCO2 46.9 mmHg (35.0-45.0); PO2 71.5 mmHg (75.0-100.0); pH 7.391 (7.340-7.450)
== END ==
LOC: M.LAB 15:07
PROVIDERS: ATTEND Internal Medicine Critical Care Medicine
DX: J44.9 Chronic obstructive pulmonary disease, unspecified (principal); J96.11 Chronic respiratory failure with hypoxia; J96.12 Chronic respiratory failure with hypercapnia

== ENCOUNTER → 2020-09-25 | Outpatient (CLI) | payer MEDICARE, MEDICAID | LOC: M.CT 09-23 13:30 | PROVIDERS: ATTEND Internal Medicine | DX: Z12.2 Encounter for screening for malignant neoplasm of respiratory organs (principal); J44.9 Chronic obstructive pulmonary disease, unspecified; J96.11 Chronic respiratory failure with hypoxia; I25.10 Atherosclerotic heart disease of native coronary artery without angina pectoris; J84.10 Pulmonary fibrosis, unspecified ==

== ENCOUNTER → 2020-11-17 | Outpatient (CLI) | payer MEDICARE, MEDICAID ==
--- NOTE | 2020-11-17 14:04 | 2DMMODE ---
[place] [address] 2 D/M-MODE ECHOCARDIOGRAM Name: KENDY LUCIA Jasmine Room: [facility]#: [id number] Admission: 11/17/20 Attend Phys: Álvaro Aguila MD Discharge: Date of : 45 Date of Service: 11/17/20 1404 Report #: [id number] THIS REPORT FOR: cc: Álvaro Aguila MD, Meng MD Liston, Michael J. MD [facility] ~ APPROVED REPORT Study performed: 11/17/2020 12:35:02 EXAM: Comprehensive 2D, Doppler, and color-flow Echocardiogram Patient Location: Out-Patient BSA: 1.80 HR: 92 bpm BP: 142/70 mmHg Other Information Study Quality: Fair Technically limited study due to lung disease. Indications Dyspnea Abnormal CT scan-heart 2D Dimensions IVSd: 12.82 (7-11mm) LVOT Diam: 20.07 (18-24mm) LVDd: 37.13 mm PWd: 9.90 (7-11mm) Ascending Ao: 27.87 (22-36mm) LVDs: 24.14 (25-40mm) Aortic Root: 26.55 mm Volumes Left Atrial Volume (Systole) LA ESV Index: 14.60 mL/m2 Aortic Valve AoV Peak William.: 1.05 m/s AO Peak Gr.: 4.42 mmHg LVOT Max P.14 mmHg AO Mean Gr.: 2.39 mmHg LVOT Mean P.87 mmHg LVOT Max V: 1.02 m/s AO V2 VTI: 16.37 cm LVOT Mean V: 0.61 m/s GONZALO (VTI): 3.51 cm2 LVOT V1 VTI: 18.17 [place] [address] 2 D/M-MODE ECHOCARDIOGRAM Name: KENDY LUCIA Room: [facility]#: [id number] Admission: 11/17/20 Attend Phys: Álvaro Aguila MD Discharge: Date of : 45 Date of Service: 11/17/20 1404 Report #: [id number] Mitral Valve E/A Ratio: 0.63 MV Decel. Time: 244.49 ms MV E Max William.: 0.46 m/s MV PHT: 70.90 ms MVA (PHT): 3.10 cm2 TDI E/Lateral E': 5.11 E/Medial E': 5.11 Medial E' William.: 0.09 m/s Lateral E' William.: 0.09 m/s Pulmonary Valve PV Peak William.: 0.90 m/s PV Peak Gr.: 3.21 mmHg Left Ventricle The left ventricle is normal size. There is normal LV segmental wall motion. There is normal left ventricular wall thickness. Left ventricular systolic function is normal. LVEF is 60-65%. Grade I - abnormal relaxation pattern. Right Ventricle The right ventricle is normal size. The right ventricular systolic function is normal. Atria The left atrium size is normal. The right atrium size is normal. Aortic Valve The aortic valve is normal in structure. No aortic regurgitation is present. There is no aortic valvular stenosis. Mitral Valve The mitral valve is normal in structure. There is no mitral valve regurgitation noted. No evidence of mitral valve stenosis. Tricuspid Valve The tricuspid valve is normal in structure. There is no tricuspid valve regurgitation noted. Pulmonic Valve The pulmonary valve is normal in structure. There is no pulmonic valvular regurgitation[place] [address] 2 D/M-MODE ECHOCARDIOGRAM Name: KENDY LUCIA Room: [facility]#: [id number] Admission: 11/17/20 Attend Phys: Álvaro Aguila MD Discharge: Date of : 45 Date of Service: 11/17/20 1404 Report #: [id number] The aortic root is normal in size. IVC is normal in size and collapses >50% with inspiration. Pericardium There is no pericardial effusion. <Conclusion> The left ventricle is normal size. There is normal left ventricular wall thickness. Left ventricular systolic function is normal. LVEF is 60-65%. Grade I - abnormal relaxation pattern. IVC is normal in size and collapses >50% with inspiration. <ELECTRONICALLY SIGNED> By: Gilberto Carrillo MD, FACC 11/17/20 1404 1404 140 Gilberto Carrillo MD, FACC /INF
== END ==
LOC: M.CRD 12:00
PROVIDERS: ATTEND Internal Medicine
DX: R93.1 Abnormal findings on diagnostic imaging of heart and coronary circulation (principal)

== ENCOUNTER → 2020-12-08 | Outpatient (CLI) | payer MEDICARE | LOC: M.ULTRA 11:00 | PROVIDERS: ATTEND Internal Medicine | DX: D47.3 Essential (hemorrhagic) thrombocythemia (principal) ==

== ENCOUNTER → 2021-02-02 | Outpatient (CLI) | payer MEDICARE ==
--- NOTE | 2021-02-08 22:55 | SLEEP ---
[place] [address] SLEEP STUDY REPORT Name: KENDY LUCIA Room: [facility]#: [id number] Admission: 02/02/21 Attend Phys: Gibran Doyle MD Discharge: Date of : 45 Report #: [id number] THIS REPORT FOR: cc: Álvaro Aguila MD, Meng MD Pervez,Gibran CHAPA ~ DOC #: [id number] Gibran Doyle MD DATE OF STUDY: 02/02/2021 SLEEP STUDY INDICATION FOR SLEEP STUDY: Excessive daytime sleepiness. INTERPRETATION: Total duration of the study is 449 minutes. During this time duration, the patient was asleep for 347 minutes with an overall sleep efficiency of 77.4%. Sleep onset initially was delayed, occurring 1 hour and 16 minutes after lying on in bed. REM onset was not observed. N1 sleep duration is 10%, N2 duration is 83%, N3 duration is 8%. We did record multiple sleep-related respiratory events. These included 1 central apnea in addition to 33 obstructive apneas and 79 hypopneas in addition to 16 respiratory effort-related arousals. Overall apnea-hypopnea index is 19.9. The patient was observed in the supine position for 326 minutes. The rest of the time the patient was in other positions. Events are more common when the patient is lying supine. Supine apnea-hypopnea index is 21.2. Mean heart rate is 83. Periodic limb movement index is elevated to 54.1. Periodic limb movement index with arousals is 10.2. Overall arousal index is elevated to 34. There are multiple desaturations recorded. Overall, the patient spent 67 minutes below an O2 saturation of 88%. IMPRESSION: 1. Obstructive sleep apnea with an apnea-hypopnea index of 19.9 with nocturnal hypoxemia as described above. Events do appear to be somewhat more common in the supine position. 2. There is periodic limb movement disorder noted as above. RECOMMENDATIONS: 1. Recommend proceeding to a repeat sleep study for positive airway pressure titration. 2. Recommend weight loss. 3. We will assess further her periodic limb movement disorder during her next sleep study. At this time, I am inclined to hold off on therapy for periodic limb movement disorder and treat her obstructive sleep apnea and nocturnal hypoxemia first. 4. Recommend avoiding driving and other [place] [address] SLEEP STUDY REPORT Name: KENDY LUCIA Room: [facility]#: [id number] Admission: 02/02/21 Attend Phys: Gibran Doyle MD Discharge: Date of : 45 Report #: [id number] drowsy. This entire sleep study was reviewed by board certified sleep physician. MD ESTER Parada/KYE <ELECTRONICALLY SIGNED> By: Gibran Doyle MD 02/08/21 [id number] melchor Quezada
== END ==
LOC: M.SLEEPLAB 19:46
PROVIDERS: ATTEND Internal Medicine Critical Care Medicine
DX: G47.33 Obstructive sleep apnea (adult) (pediatric) (principal); J96.11 Chronic respiratory failure with hypoxia; J96.12 Chronic respiratory failure with hypercapnia; J44.9 Chronic obstructive pulmonary disease, unspecified; G47.10 Hypersomnia, unspecified; Z72.821 Inadequate sleep hygiene

== ENCOUNTER → 2021-03-03 | Outpatient (CLI) | payer MEDICARE | LOC: M.PC 09:29 | PROVIDERS: ATTEND Physical Medicine & Rehabilitation | DX: M17.12 Unilateral primary osteoarthritis, left knee (principal); J43.9 Emphysema, unspecified; E03.9 Hypothyroidism, unspecified; Z90.710 Acquired absence of both cervix and uterus; Z79.899 Other long term (current) drug therapy ==

== ENCOUNTER → 2021-03-10 | Outpatient (CLI) | payer MEDICARE | END | disposition home or self-care (01) | LOC: M.PC 10:14 | PROVIDERS: ATTEND Physical Medicine & Rehabilitation | DX: M25.562 Pain in left knee (principal); M17.12 Unilateral primary osteoarthritis, left knee; I10 Essential (primary) hypertension; E03.9 Hypothyroidism, unspecified; J43.9 Emphysema, unspecified; Z98.890 Other specified postprocedural states; Z79.899 Other long term (current) drug therapy; Z90.710 Acquired absence of both cervix and uterus; Z88.8 Allergy status to other drugs, medicaments and biological substances ==

== ENCOUNTER → 2021-06-11 | Outpatient (CLI) | payer MEDICARE ==
[2021-06-11 15:47] LABS: HEMATOCRIT 39.4 % (37.0-47.0); HEMOGLOBIN 12.7 gm/dL (12.0-15.0); MCH 29.3 pg (26.0-34.0); MCHC 32.2 g/dL (28.0-37.0); MPV 6.8 fl. (7.2-11.1); NUCLEATED RBCS 0 /100WBC; PLATELET COUNT* 525 thou/uL (150-400); RBC 4.33 mil/uL (4.20-5.00); RDW-CV 14.6 % (10.5-14.5); WBC 13.7 thou/uL (4.0-11.0)
[2021-06-11 16:03] LABS: ALBUMIN 4.2 g/dL (3.4-5.0); CALCIUM 10.3 mg/dL (8.5-10.1); CREATININE 0.9 mg/dL (0.6-1.3); POTASSIUM 3.7 mmol/L (3.5-5.1); TOTAL BILIRUBIN 0.5 mg/dL (<0.1-1.0); TOTAL PROTEIN 7.3 g/dL (6.4-8.2)
[2021-06-11 16:15] LABS: ABSOLUTE LYMPHOCYTES 2.5 thou/uL (0.8-5.3); ABSOLUTE MONOCYTES 1.2 thou/uL (0.0-1.2); ATYPICAL LYMPHS 2 %
[2021-06-11 16:16] LABS: PLATELET ESTIMATE INCREASED
== END ==
LOC: M.RAD 14:39
PROVIDERS: ATTEND Internal Medicine
DX: J44.9 Chronic obstructive pulmonary disease, unspecified (principal); I10 Essential (primary) hypertension; R06.00 Dyspnea, unspecified; R05.9 Cough, unspecified; M19.012 Primary osteoarthritis, left shoulder; M19.011 Primary osteoarthritis, right shoulder

== ENCOUNTER → 2021-07-16 | Outpatient (CLI) | payer MEDICARE ==
--- NOTE | 2021-08-27 08:29 | SLEEP ---
[address] [address] SLEEP STUDY REPORT Name: KENDY LUCIA Room: [facility]#: [id number] Admission: 07/16/21 Attend Phys: Gibran Doyle MD Discharge: Date of : 45 Report #: [id number] THIS REPORT FOR: cc: Álvaro Aguila MD, Meng MD Pervez, Adeel MD ~ DATE OF STUDY: 07/16/2021 SLEEP STUDY INDICATION FOR SLEEP STUDY: Obstructive sleep apnea. Sleep study is being performed for positive airway pressure titration. INTERPRETATION: Total duration of the study is 443 minutes. During this time duration, the patient was asleep for 274 minutes with an overall sleep efficiency decreased to 62.1%. Sleep onset initially occurred about half an hour after lying down in bed. There is no REM sleep recorded during the sleep study. N1 sleep duration is 19%, N2 duration is 76%, N3 duration is 6%. Body position data indicates the patient was observed in the supine position for 212 minutes. The rest of the time the patient is on the left side. Mean heart rate is 75. Periodic limb movement index is mildly elevated to 14.2. Periodic limb movement index with arousals is 1.7. Overall, arousal index is 28.2. Mean heart rate during the sleep study is 75. This is a CPAP titration and review of the CPAP titration indicates the patient was titrated beginning with a CPAP pressure of 5 cm of water, gradually increasing it to 17 cm of water. Throughout the sleep study, the patient continued to have multiple sleep related respiratory events. Most of these were hypopneas. However, a large number of obstructive apneas were also recorded. Apnea-hypopnea index remained significantly elevated and adequate control of the patient's sleep disordered respirations could not be achieved. There was also significant hypoxemia recorded. There were multiple desaturations. The patient also remained hypoxemic through most of the sleep study and overall O2 saturation was less than 90% for 273 minutes during the sleep study. IMPRESSION: Previously diagnosed obstructive sleep apnea noted. The patient also is on long-term oxygen for chronic obstructive pulmonary disease. During the sleep study, the patient failed to be adequately controlled with CPAP therapy. RECOMMENDATIONS: Recommend proceeding with another sleep study for BiPAP titration. The patient has failed CPAP and requires BiPAP therapy[place] [address] SLEEP STUDY REPORT Name: KHARIKENDY Room: [facility]#: [id number] Admission: 07/16/21 Attend Phys: Gibran Doyle MD Discharge: Date of : 45 Report #: [id number] There is a mild periodic limb movement disorder as above. At this point, we would hold off on therapy for periodic limb movement disorder and we will correct the patient's sleep disordered respirations and hypoxemia first. Recommend avoiding driving and other activities requiring vigilance if drowsy. This entire sleep study was reviewed by a board certified sleep physician. <ELECTRONICALLY SIGNED> By: Gibran Doyle MD 08/27/21 [id number] Doyle MD /nt
== END ==
LOC: M.SLEEPLAB 03-16 20:00
PROVIDERS: ATTEND Internal Medicine Critical Care Medicine
DX: J44.9 Chronic obstructive pulmonary disease, unspecified (principal); G47.33 Obstructive sleep apnea (adult) (pediatric); Z99.81 Dependence on supplemental oxygen

== ENCOUNTER → 2021-08-18 | Outpatient (CLI) | payer MEDICARE | LOC: M.RAD 16:09 | PROVIDERS: ATTEND Orthopaedic Surgery | DX: M25.762 Osteophyte, left knee (principal); M25.712 Osteophyte, left shoulder; M75.102 Unspecified rotator cuff tear or rupture of left shoulder, not specified as traumatic ==